=== PATIENT | male | born 1980 | race Caucasian/White ===

== ENCOUNTER 2017-10-28 18:16 | Emergency (ER) | payer MEDICAID, OTHER ==
--- NOTE | 2017-10-28 18:19 | EDPHY ---
H & P Time Seen by Provider: 10/28/17 18:18 - Medical/Surgical History Hx Asthma: No Hx Chronic Respiratory Disease: No Hx Diabetes: No Hx Cardiac Disease: No Hx Renal Disease: No Hx Cirrhosis: No Hx Alcoholism: No Hx HIV/AIDS: No Hx Splenectomy or Spleen Trauma: No Other PMH: PT REPORTS HAVING ECHO AND WAS FOUND TO HAVE MILD TRICUPID REGURG. CHRONIC GASTRITIS, Constitutional: Initial Vital Signs Temperature (C) 36.6 C 10/28/17 18:24 Heart Rate 68 10/28/17 18:24 Respiratory Rate 16 10/28/17 18:24 Blood Pressure 141/75 H 10/28/17 18:24 O2 Sat (%) 95 10/28/17 18:24 O2 Delivery Mode Room Air Allergies/Adverse Reactions: Penicillins Allergy (Intermediate, Verified 10/28/17 18:24) Home Medications: Medication Instructions Recorded Cyclobenzaprine [Flexeril] 10 mg PO TID PRN 02/28/11 Propecia 02/28/11 Sucralfate 1 gm PO 01/16/13 Dexlansoprazole [Dexilant] 06/03/13 Medical Decision Making - Diagnostics Imaging Results: Imaging Impressions Chest X-Ray 10/28/17 18:25 Impression: No evidence of acute cardiopulmonary abnormality. Imaging: I viewed and interpreted images myself ED Course/Re-evaluation: CHIEF COMPLAINT: Chest pain HISTORY OF PRESENT ILLNESS: The patient is a 36 y/o male with a history of anxiety arriving via EMS complaining of mid sternal chest pain radiating through to his back onset this morning, this pain is now resolved. For the past several months he has had more panic attacks than normal. This morning after drinking a cup of coffee he had another panic attack and subsequently developed the chest pain. At this time he also had abdominal pain which was alleviated with Pepto Bismol. He is currently having mild upper abdominal pain but is no longer having chest pain. Denies pain with deep inhalation. Denies shortness of breath, vomiting, feeling faint, urinary or bowel complaints, numbness or paresthesias. REVIEW OF SYSTEMS: A 10 point review of systems was performed and is negative with the exception of the elements mentioned in the history of present illness. PHYSICAL EXAM: HR, BP, O2 Sat, RR. Temp noted General Appearance: Alert, well hydrated, appropriate, and non-toxic appearing. Head: Atraumatic without scalp tenderness or obvious injury Eyes: Pupils equal, round, reactive to light and accommodation, EOMI, no trauma , no injection. Ears: Clear bilaterally, no perforation, normal landmarks Nose: Atraumatic, no rhinorrhea, clear. Throat: There is no erythema or exudates, no lesions, normal tonsils, mucus membranes moist. Neck: Supple, nontender, no lymphadenopathy. Respiratory: No retractions, no distress, no wheezes, and no accessory muscle use. Lungs are clear to auscultation bilaterally. Cardiovascular: Regular rate and rhythm, no murmurs, rubs, or gallops. Bilateral carotid, radial, dorsalis pedis, and posterior tibial pulses intact. Good capillary refill all extremities. Gastrointestinal: Mild tenderness in upper gastric area under the xiphoid process. Abdomen is soft, non-distended, no masses, no rebound, no guarding, no peritoneal signs. Musculoskeletal: Normal active ROM of all extremities, atraumatic. Neurological: Alert, appropriate, and interactive. Non-focal neuro Skin: No rashes, good turgor, no nodules on palpation. Past medical history: Echocardiogram revealed mild Tricuspid regurgitation, chronic gastritis, scoliosis, anxiety Past surgical history: Denies Family history: Denies Social history: Lives in [place], single, self-employed DIAGNOSTICS/PROCEDURES/CRITICAL CARE TIME: EKG: The 12 lead EKG was interpreted by myself as sinus rhythm with a rate of 74 , incomplete RBBB. See hard copy and/or "tracemaster" electronic copy for interpretation. Chest x-ray: Normal DIFFERENTIAL DIAGNOSIS: The differential diagnosis for the patient's chest pain included but was not limited to anxiety, myocardial ischemia, pulmonary embolus, chest wall pain, pleural inflammation, and pulmonary infectious causes. MEDICAL DECISION MAKING: The patient is a 36 y/o male with a history of anxiety arriving via EMS presenting with resolved mid-sternal chest pain radiating through to his back onset this morning. He believes this pain is due to an anxiety attack. On exam he has mild upper epigastric tenderness. Labs, EKG, and chest x-ray ordered. GI cocktail given. 1819: I met EMS upon arrival 1821: I interpreted EKG as normal sinus rhythm 1921: Patient's labs and chest x-ray are normal. 1923: Reassessed patient and discussed normal lab and imaging findings. I have provided him resources for his anxiety including [facility]. Return precautions provided; patient is comfortable with this plan. - Data Points Laboratory Results: Laboratory Results 10/28/17 18:25 10/28/17 18:25 10/28/17 10/28/17 18:25 18:25 WBC 6.56 10^3/uL 10^3/uL (3.80-9.50) RBC 5.37 10^6/uL 10^6/uL (4.40-6.38) Hgb 15.9 g/dL g/dL (13.7-17.5) Hct 47.5 % % (40.0-51.0) MCV 88.5 fL fL (81.5-99.8) MCH 29.6 pg pg (27.9-34.1) MCHC 33.5 g/dL g/dL (32.4-36.7) RDW 14.2 % % (11.5-15.2) Plt Count 245 10^3/uL 10^3/uL (150-400) MPV 10.4 fL fL (8.7-11.7) Neut % (Auto) 62.3 % % (39.3-74.2) Lymph % (Auto) 27.3 % % (15.0-45.0) [place] % (Auto) 7.5 % % (4.5-13.0) Eos % (Auto) 1.8 % % (0.6-7.6) Baso % (Auto) 0.9 % % (0.3-1.7) Nucleat RBC Rel Count 0.0 % % (0.0-0.2) Absolute Neuts (auto) 4.09 10^3/uL 10^3/uL (1.70-6.50) Absolute Lymphs (auto) 1.79 10^3/uL 10^3/uL (1.00-3.00) Absolute Monos (auto) 0.49 10^3/uL 10^3/uL (0.30-0.80) Absolute Eos (auto) 0.12 10^3/uL 10^3/uL (0.03-0.40) Absolute Basos (auto) 0.06 10^3/uL 10^3/uL (0.02-0.10) Absolute Nucleated RBC 0.00 10^3/uL 10^3/uL (0-0.01) Immature Gran % 0.2 % % (0.0-1.1) Immature Gran # 0.01 10^3/uL 10^3/uL (0.00-0.10) Sodium 141 mEq/L mEq/L (135-145) Potassium 4.7 mEq/L mEq/L (3.3-5.0) Chloride 101 mEq/L mEq/L (97-110) Carbon Dioxide 27 mEq/l mEq/l (22-31) Anion Gap 13 mEq/L mEq/L (8-16) BUN 18 mg/dL mg/dL (7-23) Creatinine 0.8 mg/dL mg/dL (0.7-1.3) Estimated GFR > 60 Glucose 108 mg/dL H mg/dL (70-100) Calcium 9.4 mg/dL mg/dL (8.5-10.4) Troponin I < 0.012 ng/mL ng/mL (0.000-0.034) Medications Given: Discontinued Medications Al Hydroxide/Mg Hydroxide (Maalox Susp) 30 ml PO ONCE ONE Stop: 10/28/17 18:25 Last Admin: 10/28/17 18:30 Dose: 30 ml Hyoscyamine Sulfate (Levsin, Hyomax-Sl) 0.25 mg PO ONCE ONE Stop: 10/28/17 18:25 Last Admin: 10/28/17 18:30 Dose: 0.25 mg Lidocaine (Lidocaine 2% Viscous) 15 ml PO ONCE ONE Stop: 10/28/17 18:25 Last Admin: 10/28/17 18:30 Dose: 15 ml Departure - Departure Disposition: Home, Routine, Self-Care Clinical Impression: Anxiety Chest pain Qualifiers: Chest pain type: other chest pain Qualified Code(s): R07.89 - Other chest pain Condition: Good Instructions: Chest Pain (ED), Anxiety (ED) Additional Instructions: Follow up with your psychologist or [facility] regarding your anxiety. Return to the Emergency Department for fever, chest pain, shortness of breath, increasing pain or other worsening of condition. Referrals: [facility],. [Clinic] - As per Instructions [facility],. [Clinic] - As per Instructions Report Scribed for: Shashi Felipe Report Scribed by: Tami Menezes Date of Report: 10/28/17 Time of Report: 18:33
--- NOTE | 2017-10-28 18:23 | CPEKG ---
Heart Rate: 74 RR Interval: 811 P-R Interval: 164 QRSD Interval: 114 QT Interval: 376 QTC Interval: 418 P [place]: 60 QRS [place]: 89 T Wave [place]: 52 EKG Severity - ABNORMAL ECG - EKG Impression: SINUS RHYTHM EKG Impression: PROBABLE LEFT ATRIAL ABNORMALITY EKG Impression: INCOMPLETE RIGHT BUNDLE BRANCH BLOCK Electronically Signed By: Shashi Felipe 28-Oct-2017 21:56:38
[2017-10-28] MEDS ORDERED: MAG HYDROX/AL HYDROX/SIMETH 30 ML UDCUP PO ONE (18:24)
[2017-10-28] MEDS ORDERED: LIDOCAINE 2% VISCOUS 15 ML UDCUP PO ONE (18:24)
[2017-10-28] MEDS ORDERED: HYOSCYAMINE SULFATE 0.125 MG TAB PO ONE (18:24)
[2017-10-28 18:31] LABS: PLATELET COUNT 245 10^3/uL (150-400)
[2017-10-28 19:15] VITALS: BP 126/71
== END 2017-10-28 19:28 | disposition home or self-care (01) ==
LOC: EDUNIT#
DX: R07.89 Other chest pain (principal); F41.9 Anxiety disorder, unspecified